=== PATIENT | female | born 2005 | race Caucasian/White ===

== ENCOUNTER 2023-09-10 05:56 | Outpatient (REF) | payer OTHER, SELFPAY ==
--- NOTE | ~2023-09-10 | US_ITS ---
EXAMINATION: US PELVIS CLINICAL INFORMATION: Follow-up right ovarian cyst/adnexal cyst LMP: Irregular, as IUD COMPARISON: Pelvic ultrasound 07/30/2023 TECHNIQUE: Ultrasound of the pelvis is performed using both transabdominal and transvaginal transducers along with Doppler. Transvaginal imaging is performed due to inadequate visualization transabdominally. FINDINGS: Uterus: The uterus is retroverted and measures 7.0 x 3.2 x 3.8 cm. No focal fibroid The endometrial thickness is 0.5 cm. The IUD is in appropriate position. Adnexa: Both ovaries are visualized. There is normal color flow to the adnexa. There is no ovarian torsion. There is no pelvic ascites or fluid collection. Right ovary measures 2.3 x 2.2 x 2.3 cm. Volume 5.9 mL. Left ovary measures 3.0 x 1.9 x 2.0 cm. Volume 6.1 mL. Previously noted right ovarian/adnexal cyst has resolved. US/US pelvic and transvaginal IMPRESSION: 1. Normal pelvic ultrasound. 2. IUD is in appropriate position. 3. Previously noted right ovarian/adnexal cyst has resolved.
== END 2023-09-10 05:57 | disposition home or self-care (01) ==
LOC: HO.UMASIMG 05:56
PROVIDERS: Visit Provider Family Medicine
DX: N83.299 Other ovarian cyst, unspecified side (principal)
CPT/HCPCS: 76830; 76856